=== PATIENT | male | born 1935 | race Caucasian/White ===

== ENCOUNTER 2018-07-08 14:24 | Day surgery (SDC) | payer OTHER ==
[2018-07-08] MEDS ORDERED: LR 1,000 ML IV ONE (14:49)
[2018-07-08 16:04] LABS: PLATELET COUNT 271 10^3/uL (150-400)
--- NOTE | 2018-07-08 16:56 | PDANEPAE ---
ANE History of Present Illness melena ANE Past Medical History - Cardiovascular History Hx Hypertension: Yes Hx Arrhythmias: Yes Hx Chest Pain: No Hx Coronary Artery / Peripheral Vascular Disease: No Hx CHF / Valvular Disease: No Hx Palpitations: No - Pulmonary History Hx COPD: No Hx Asthma/Reactive Airway Disease: No Hx Recent Upper Respiratory Infection: No Hx Oxygen in Use at Home: Yes O2 in Use at Home (L/minute): 2 Hx Sleep Apnea: Yes Sleep Apnea Screening Result - Last Documented: Positive Pulmonary History Comment: CONTINUAL SOB - Neurologic History Hx Cerebrovascular Accident: Yes Hx Seizures: No Hx Dementia: No Neurologic History Comment: LT SIDED WITH RESIDUAL WEAKNESS - Endocrine History Hx Diabetes: Yes Endocrine History Comment: NIDDM ON RX UNTIL RECENTLY - Renal History Hx Renal Disorders: No - Liver History Hx Hepatic Disorders: No - Neurological & Psychiatric Hx Hx Neurological and Psychiatric Disorders: No - Cancer History Hx Cancer: Yes Cancer History Comment: PROSTATE TREATMENT RADIOACTIVE SEED IMPLANTS - Congenital Disorder History Hx Congenital Disorders: No - GI History Hx Gastrointestinal Disorders: Yes Gastrointestinal History Comment: RECENT BLOOD IN STOOL - Other Health History Other Health History: DRY MOUTH SOME DIFFICULTY WITH SWALLOWING. MACULAR DEGENERATION. MISSING TEETH. RECENTLY HOSPITALIZED 06/2018 WITH BLOOD TRANSFUSIONS - Chronic Pain History Chronic Pain: No - Surgical History Prior Surgeries: ORIF RT ANKLE 10/2014. LT ING HERNIA. APPENDECTOMY. REMVL TESTICULAR TUMOR BENIGN ANE Review of Systems Review of Systems: - Exercise capacity METS (RN): 2 METS ANE Patient History - Allergies Allergies/Adverse Reactions: No Known Allergies Allergy (Unverified 10/23/14 07:36) - Home Medications Home Medications: RX: Latanoprost 0.005% [Xalatan 0.005% (*)] 1 drops EACHEYE DAILY 10/23/14 [ Last Taken 07/07/18] RX: Simvastatin [Zocor 40 mg] 40 mg PO DAILY18 10/23/14 [Last Taken 07/07/18] RX: Tiotropium Inhaler [Spiriva Inhaler (RX)] 1 inh IH DAILY 10/23/14 [Last Taken 07/08/18] ALPHAGAN P 0.1% (*) BID 07/05/18 [Last Taken 07/08/18] Azelastine HCl 07/08/18 [Last Taken Unknown] Biotene (*) 07/08/18 [Last Taken 07/08/18] Coumadin 2MG (*) 07/08/18 [Last Taken 07/02/18] Preservision Areds Tablet 1 07/08/18 [Last Taken 07/08/18] Protonix 40mg (*) 07/08/18 [Last Taken 07/08/18] Vit B Complx C/Folic Acid/Zinc 07/08/18 [Last Taken 07/07/18] Vit C/Ascorb Sod/Multivit-Min 07/08/18 [Last Taken 07/08/18] - NPO status NPO Since - Liquids (Date): 07/08/18 NPO Since - Liquids (Time): 09:00 NPO Since - Solids (Date): 07/07/18 NPO Since - Solids (Time): 12:00 - Smoking Hx Smoking Status: Former smoker ANE Labs/Vital Signs - Labs Result Diagrams: 07/08/18 15:55 - Vital Signs Blood Pressure: 123/72 Heart Rate: 67 Respiratory Rate: 15 O2 Sat (%): 96 Height: 182.88 cm Weight: 81.647 kg ANE Physical Exam - Airway Neck exam: FROM Mallampati Score: Class 2 Mouth exam: poor dentition - Pulmonary Pulmonary: no respiratory distress - Cardiovascular Cardiovascular: regular rate and rhythym - ASA Status ASA Status: III ANE Anesthesia Plan Total IV Anesthesia: Yes
[2018-07-08] MEDS ORDERED: PROPOFOL/EMULSION 500 MG/50 ML BOTTLE IV ONE (17:02)
--- NOTE | 2018-07-08 17:06 | PDGENHP ---
History & Physical Chief Complaint: blood in stools History of Present Illness: 82 year old male presents for evaluation of blood in stools. Pertinent Past, Social, Family History: PMHx: RANGEL, NIDDM Relevant Physical Exam: HEENT: anicteric. CV: RRR +s1s2. lungs: CTAB. Abd: soft, nt, + bs Cardiorespiratory Assessment: ASA 3
[2018-07-08] MEDS ORDERED: NS 500 ML IV SCH (17:15)
[2018-07-08] MEDS ORDERED: NALOXONE HCL 0.4 MG/ML INJ IVP PRN (17:33)
--- NOTE | 2018-07-08 17:50 | POSTANESTH ---
Post Anesthetic Evaluation Cardiovascular Status: Normal, Stable Respiratory Status: Normal, Stable Level of Consciousness/Mental Status: Can Participate in Eval Pain Control: Adequate, Prn Tx Ordered Nausea/Vomiting Control: Adequate, Prn Tx Ordered Complications Possibly Related to Anesthesia: None Noted
[2018-07-08 18:43] VITALS: BP 142/79
--- NOTE | 2018-07-09 17:47 | CPEKG ---
Test Reason : OPEN Blood Pressure : / mmHG Vent. Rate : 064 BPM Atrial Rate : 064 BPM P-R Int : 259 ms QRS Dur : 098 ms QT Int : 400 ms P-R-T Axes : -58 -38 -02 degrees QTc Int : 413 ms Sinus or ectopic atrial rhythm Prolonged ME interval Inferior infarct, old Probable anterior infarct, age indeterminate Confirmed by Hiro Lee ([id number]) on 07/09/2018 5:46:50 PM Referred By: Confirmed By:Hiro Lee
--- NOTE | 2018-07-11 11:09 | GIREPORT ---
[facility] Surgical Services - Endoscopy Department Patient Name: Eligio Vanegas Procedure Date: 07/08/2018 4:43 PM Patient Type: Outpatient Attending MD/ ER Physician: Diego Miller MD Procedure: Colonoscopy Indications: Melena Patient Profile: 82 year old male presents for evaluation of blood in his stools. Providers: Diego Miller MD Medicines: Monitored Anesthesia Care Complications: No immediate complications. Description of Procedure: After obtaining informed consent, the scope was passed under direct vis ion. Throughout the procedure, the patient's blood pressure, pulse, and oxyg en saturations were monitored continuously. The Colonoscope with irrigatio n channel was introduced through the anus and advanced to the terminal il eum. The colonoscopy was performed without difficulty. The patient tolerated the procedure well. The quality of the bowel preparation was inadequate. Th e rectum was photographed. Findings: Hemorrhoids were found on perianal exam. Multiple small and large-mouthed diverticula were found in the sigmoid colon and descending colon. A large amount of stool was found in the rectum, in the sigmoid colon a nd in the descending colon, precluding visualization. Estimated Blood Loss: Estimated blood loss: none. Post Op Diagnosis: - Preparation of the colon was inadequate. - Hemorrhoids found on perianal exam. - Diverticulosis in the sigmoid colon and in the descending colon. Significant stool was seen and solid stool was blocking the lumen in se veral areas. - Stool in the rectum, in the sigmoid colon and in the descending colon . - No specimens collected. Recommendation: - Discharge patient to home (with escort). - Resume previous diet. - Continue present medications. - Repeat colonoscopy because the bowel preparation was suboptimal. - Thank you for allowing me to participate in the care of your patient. Attending Participation: I personally performed the entire procedure. Diego Miller MD Diego Miller MD 07/08/2018 5:35:04 PM This report has been signed electronicallyDiego Miller MD Number of Addenda: 0 Note Initiated On: 07/08/2018 4:43 PM Total Procedure Duration Time 0 hours 9 minutes 24 seconds [email or web address]
--- NOTE | 2018-07-11 11:09 | GIREPORT ---
[facility] Surgical Services - Endoscopy Department Patient Name: Eligio Vanegas Procedure Date: 07/08/2018 4:42 PM Patient Type: Outpatient Attending MD/ ER Physician: Diego Miller MD Procedure: Upper GI endoscopy Indications: Acute post hemorrhagic anemia, Melena Patient Profile: 82 year old male presents for evaluatin of post hemorrhagic anemia/anemia/melena. Providers: Diego Miller MD Medicines: Monitored Anesthesia Care Complications: No immediate complications. Estimated blood loss: Minimal. Description of Procedure: After obtaining informed consent, the endoscope was passed under direct vision. Throughout the procedure, the patient's blood pressure, pulse, and oxygen saturations were monitored continuously. The Endoscope was intro duced through the mouth, and advanced to the second part of duodenum. The [facility] er GI endoscopy was accomplished without difficulty. The patient tolerated th e procedure well. Findings: The examined esophagus was normal. A hiatal hernia was present. The examined duodenum was normal. Biopsies for histology were taken wit h a cold forceps for evaluation of celiac disease. Estimated Blood Loss: Estimated blood loss was minimal. Post Op Diagnosis: - Normal esophagus. - Hiatal hernia. - Normal examined duodenum. Biopsied. - Etiology? No cause of symptoms seen. Proceed with colonoscopy. Recommendation: - Perform a colonoscopy today. - More recommendations on colonoscopy report. - Await pathology results. - Thank you for allowing me to participate in the care of your patient. Attending Participation: I personally performed the entire procedure. Diego Miller MD Diego Miller MD 07/08/2018 5:19:42 PM This report has been signed electronicallyDiego Miller MD Number of Addenda: 0 Note Initiated On: 07/08/2018 4:42 PM [email or web address]
== END 2018-07-08 19:10 | disposition home or self-care (01) ==
LOC: FSGY 14:24
PROVIDERS: ATTEND Internal Medicine Gastroenterology
PROC: 0WJP8ZZ Inspection of Gastrointestinal Tract, Via Natural or Artificial Opening Endoscopic Approach (ICD-10-PCS; principal; 2018-07-08 16:15)
DX: K92.1 Melena (principal); K57.30 Diverticulosis of large intestine without perforation or abscess without bleeding; K64.8 Other hemorrhoids; Z53.29 Procedure and treatment not carried out because of patient's decision for other reasons; G47.33 Obstructive sleep apnea (adult) (pediatric); E11.9 Type 2 diabetes mellitus without complications
CPT/HCPCS: J2704